=== PATIENT | male | born 1985 | race Caucasian/White ===

== ENCOUNTER 2019-10-04 16:19 | Inpatient (IN) | payer OTHER ==
[~2019-10-04] VITALS: Ht 185.4 cm; Wt 112.3 kg
[2019-10-04] MEDS ORDERED: EPINEPHRINE 5 MG in SODIUM CHLORIDE 0.9% 245 ML IV PRN (16:54)
[2019-10-04] MEDS ORDERED: PROPOFOL 100 ML IV PRN ×2 (16:54→18:31)
[2019-10-04] MEDS ORDERED: NALOXONE 4 MG in SODIUM CHLORIDE 0.9% 246 ML IV PRN (17:00)
[2019-10-04] MEDS ORDERED: NALOXONE 8 MG in SODIUM CHLORIDE 0.9% 242 ML IV PRN (17:00)
[2019-10-04] MEDS ORDERED: VECURONIUM 10 MG IVPush PRN (17:00)
--- NOTE | 2019-10-04 17:10 | NUR ---
THROUGHTPUT RN: CRITICAL LABS RECEIVED FROM LAB. EDMD AND PRIMARY RN AWARE.
--- NOTE | 2019-10-04 17:12 | NUR ---
vent setting rate 26 500 tv 100 % peep 12
[2019-10-04 17:16] LABS: ALBUMIN 2.8 g/dL (3.4-5.0); ANION GAP 23 mmol/L (5-15); CALCIUM 10.2 mg/dL (8.5-10.1); CHLORIDE 104 mmol/L (98-107); CREATININE 2.56 mg/dL (0.7-1.3)
[2019-10-04 17:24] LABS: ALANINE AMINOTRANSFERASE 1053 U/L (12-78); ALKALINE PHOSPHATASE 116 U/L (45-117); BILIRUBIN,TOTAL 0.4 mg/dL (0.2-1.0); TOTAL PROTEIN 5.6 g/dL (6.4-8.2)
[2019-10-04] MEDS ORDERED: SODIUM BICARBONATE 8.4% 150 MEQ in DEXTROSE 5% 1,000 ML IV SCH (17:30)
[2019-10-04] MEDS ORDERED: SODIUM BICARB 8.4%, 50ML SYRINGE IVPush ONE (17:30)
[2019-10-04] MEDS ORDERED: EPINEPHRINE SYRINGE 0.1 MG/ML, 10ML IVPush ONE (17:30)
[2019-10-04 17:37] LABS: SALICYLATE LEVEL 2.1 mg/dL (2.8-20.0)
[2019-10-04 17:38] LABS: TROPONIN I 0.139 ng/mL (0.000-0.045)
[2019-10-04] MEDS ORDERED: NALOXONE 1 MG/ML, 2ML ONE ×2 (17:38→17:41)
[2019-10-04] MEDS ORDERED: SODIUM BICARB 8.4%, 50ML SYRINGE ONE ×2 (17:38→17:41)
--- NOTE | 2019-10-04 17:38 | NUR ---
THROUGHPUT RN: RECEIVED CRITICAL TROP OF 0.139. DR. ROGERS AWARE.
[2019-10-04] MEDS ORDERED: CALCIUM CHLORIDE 13.6 MEQ/10 ML ONE (17:41)
[2019-10-04] MEDS ORDERED: EPINEPHRINE SYRINGE 0.1 MG/ML, 10ML ONE (17:41)
[2019-10-04 17:54] LABS: MEAN CORPUSCULAR HEMOGLOBIN 31.1 pg (27.5-34.5); MEAN CORPUSCULAR HGB CONC 31.2 g/dL (33.2-36.2); MEAN CORPUSCULAR VOLUME 99.4 fL (81-97); MEAN PLATELET VOLUME 6.8 fL (7.4-10.4); PLATELET COUNT 201 x10^3/uL (130-400); RED BLOOD COUNT 5.29 x10^6/uL (4.38-5.82); RED CELL DISTRIBUTION WIDTH 14.5 % (9.4-14.8)
[2019-10-04] MEDS ORDERED: EPINEPHRINE 10 MG in SODIUM CHLORIDE 0.9% 240 ML IV PRN (18:00)
[2019-10-04] MEDS ORDERED: PIPERACILLIN/TAZO/PMX 4.5GM 100 ML IV ONE (18:00)
[2019-10-04] MEDS ORDERED: NOREPINEPHRINE 8 MG in SODIUM CHLORIDE 0.9% 242 ML IV PRN (18:07)
[2019-10-04] MEDS ORDERED: PROPOFOL 100 ML IV ONE (18:14)
--- NOTE | 2019-10-04 18:25 | NUR ---
epi drip d/c per dr mathew. propofol initiated.
[2019-10-04 18:30] LABS: MD YES
[2019-10-04] MEDS ORDERED: PLEASE ENTER ALLERGIES MC SCH (18:30)
[2019-10-04 18:36] LABS: BAND#(MANUAL) 2.42 x10^3/uL; BANDS%(MANUAL) 10 % (0-7); LYMPH#(MANUAL) 10.16 x10^3/uL (1-3.4); LYMPHS% (MANUAL) 42 % (22-44); METAMYELOCYTES# (MANUAL) 0.24 x10^3/uL (0-0); METAMYELOCYTES% (MANUAL) 1 % (0-1); MONOS#(MANUAL) 0.97 x10^3/uL (0.3-2.7); MONOS% (MANUAL) 4 % (2-9); NRBC % (MANUAL) 1 % (0-1); SEG#(MANUAL) 10.41 x10^3/uL (1.8-6.8); SEGS% (MANUAL) 43 % (42-75)
[2019-10-04 18:37] LABS: HYPOCHROMIA 1+; POLYCHROMASIA 1+
[2019-10-04 18:39] LABS: <PLATELET ESTIMATE> ADEQUATE; <PLT MORPHOLOGY> NORMAL PLT MORPH
--- NOTE | 2019-10-04 18:43 | NUR ---
SUMMARY OF EVENTS: 1544- PT IN ROOM, CPR CONTINUED, EPI 1MG PUSH IV, 1548- 2MG NARCAN GIVEN IV, CPR CONTINUED 1615- PT INTUBATED @24CM AT THE LIP WITH A 8.0 TUBE. 1621- BICARB, CACL, EPI 1MG GIVEN, PULSE CHECK PT REMAINS IN ASYSTOLE 1624- EPI 1 MG IV, CONTINUED CPR 1626- NO PULSE ON PULSE CHECK, CONTINUED CPR 1630- CARDIAC US AT BEDSIDE SHOWS CARDIAC ACTIVITY. PT IN SINUS TACH NOW 1640- CENTRAL LINE PLACED, LABS COLLLECTED AND ABG SENT 1656-OG TUB PLACED 1658-EPI DRIP STARTED 1700- EKG COMPLETED (SINUS TACH) 1713-COOLING PADS APPLIED 1715-REYNAGA IN PLACE AND RECTAL TEMP, PRPOBE.
--- NOTE | 2019-10-04 18:57 | NUR ---
JESUS GUTIÉRREZ STARR AND CELLPHONE GIVEN TO FAMILY MEMEBER MOTHER BY Nuvia JIMENEZ.
[2019-10-04] MEDS ORDERED: CALCIUM CHLORIDE 13.6 MEQ in SODIUM CHLORIDE 0.9% 100 ML IVPB PRN (19:00)
[2019-10-04] MEDS: KSCALE TO 4.0 IV SCH ×2 (19:00→23:00)
--- NOTE | 2019-10-04 19:11 | NUR ---
PT REPORT BACK TO MARÍA.
[2019-10-04] MEDS ORDERED: FENTANYL PF 1,000 MCG in SODIUM CHLORIDE 0.9% 80 ML IV PRN (20:00)
[2019-10-04] MEDS ORDERED: SODIUM PHOSPHATE 20 MMOL in SODIUM CHLORIDE 0.9% 250 ML IVPB PRN (20:00)
--- NOTE | 2019-10-04 20:09 | NUR ---
VITAL SIGNS PRINTED AND GIVEN TO ICU. ICU NURSE NOTIFIED THAT [employer] HAS NOT BEEN CONTACTED.
[2019-10-04 20:26] LABS: AMPHETAMINE SCREEN, URINE Negative (Negative); BARBITURATE SCREEN, URINE Negative (Negative); BENZODIAZEPINE SCREEN, URINE Negative (Negative); CANNABINOID SCREEN, URINE Negative (Negative); COCAINE SCREEN, URINE Negative (Negative); METHADONE SCREEN, URINE Positive (Negative); OPIATE SCREEN, URINE Negative (Negative)
[2019-10-04] MEDS ORDERED: POTASSIUM CHLORIDE PMX 100 ML IV ONE ×2 (20:30→23:45)
[2019-10-04] MEDS: AMPICILLIN/SULBACTAM 3 GM in SODIUM CHLORIDE 0.9% 100 ML IV SCH (20:34)
[2019-10-04] MEDS: BUSPIRONE 10 MG TABLET NG SCH (20:35)
[2019-10-04] MEDS: HEPARIN 5,000 UNITS/ML, 1ML SQ SCH (20:35)
[2019-10-04] MEDS ORDERED: ONDANSETRON 2MG/ML, 2ML IVPush PRN (21:00)
[2019-10-04] MEDS: ARTIFICIAL TEARS OINT 3.5 GM EACHEYE SCH (21:12)
[2019-10-04 21:47] VITALS: BP 105/75
[2019-10-04] MEDS ORDERED: REGULAR INSULIN 100 UNITS in SODIUM CHLORIDE 0.9% 99 ML IV PRN (23:30)
[2019-10-04] MEDS: SODIUM BICARBONATE 8.4% 150 MEQ in DEXTROSE 5% 1,000 ML IV SCH (23:32)
[2019-10-04] MEDS: MAGNESIUM SULFATE 1 GM in DEXTROSE 5% 100 ML IVPB PRN (23:57)
[2019-10-05] MEDS: KSCALE TO 4.0 IV SCH ×3 (03:00→11:00)
[2019-10-05] MEDS: AMPICILLIN/SULBACTAM 3 GM in SODIUM CHLORIDE 0.9% 100 ML IV SCH ×4 (03:12→21:15)
[2019-10-05 03:47] LABS: ALBUMIN 3.2 g/dL (3.4-5.0); ANION GAP 9 mmol/L (5-15); CALCIUM 8.6 mg/dL (8.5-10.1); CHLORIDE 108 mmol/L (98-107); CREATININE 2.22 mg/dL (0.7-1.3)
[2019-10-05 03:58] LABS: ALANINE AMINOTRANSFERASE 2416 U/L (12-78); ALKALINE PHOSPHATASE 90 U/L (45-117); BILIRUBIN,TOTAL 0.6 mg/dL (0.2-1.0); TOTAL PROTEIN 6.2 g/dL (6.4-8.2)
[2019-10-05 04:00] VITALS: BP 111/79
[2019-10-05 04:02] LABS: MEAN CORPUSCULAR HGB CONC 32.4 g/dL (33.2-36.2); MEAN CORPUSCULAR VOLUME 95.6 fL (81-97); MEAN PLATELET VOLUME 6.8 fL (7.4-10.4); PLATELET COUNT 196 x10^3/uL (130-400); RED BLOOD COUNT 6.08 x10^6/uL (4.38-5.82); RED CELL DISTRIBUTION WIDTH 14.1 % (9.4-14.8)
[2019-10-05] MEDS: BUSPIRONE 10 MG TABLET NG SCH ×3 (04:28→21:15)
[2019-10-05] MEDS: ARTIFICIAL TEARS OINT 3.5 GM EACHEYE SCH ×3 (04:28→21:55)
[2019-10-05] MEDS: HEPARIN 5,000 UNITS/ML, 1ML SQ SCH ×3 (04:28→21:16)
[2019-10-05] MEDS ORDERED: POTASSIUM CHLORIDE PMX 100 ML IV ONE (04:30)
[2019-10-05 04:55] LABS: BASOPHILS % (AUTO) 0 % (0-1); EOSINOPHILS # (AUTO) 0.01 x10^3/uL (0-0.4); EOSINOPHILS % (AUTO) 0 % (1-7); LYMPHOCYTES # (AUTO) 0.56 x10^3/uL (1-3.4); LYMPHOCYTES % (AUTO) 7 % (22-44); MD SCAN; MONOCYTES # (AUTO) 0.06 x10^3/uL (0.2-0.8); MONOCYTES % (AUTO) 1 % (2-9); NEUTROPHILS # (AUTO) 7.31 x10^3/uL (1.8-6.8); NEUTROPHILS % (AUTO) 92 % (42-75)
[2019-10-05] MEDS: SODIUM BICARBONATE 8.4% 150 MEQ in DEXTROSE 5% 1,000 ML IV SCH ×2 (07:04→21:15)
[2019-10-05] MEDS: PANTOPRAZOLE 40 MG IV IVPush SCH (07:30)
[2019-10-05] MEDS ORDERED: POTASSIUM CHLORIDE 30 MEQ in SODIUM CHLORIDE 0.9% 100 ML IV ONE ×3 (08:00→17:30)
[2019-10-05] MEDS: FAMOTIDINE 20 MG/2 ML IVPush SCH (08:23)
[2019-10-05] MEDS: MAGNESIUM SULFATE 1 GM in DEXTROSE 5% 100 ML IVPB PRN (11:26)
[2019-10-05] MEDS: PHENYLEPHRINE 50 MG in SODIUM CHLORIDE 0.9% 245 ML IV PRN ×2 (12:36→18:16)
[2019-10-05] MEDS: NOREPINEPHRINE 32 MG in SODIUM CHLORIDE 0.9% 218 ML IV PRN ×2 (13:08→18:16)
[2019-10-05] MEDS ORDERED: MAGNESIUM SULFATE PMX 4GM/100M 100 ML IV ONE (13:30)
[2019-10-05] MEDS ORDERED: SODIUM CHLORIDE 0.9% 1,000 ML IV SCH (13:30)
[2019-10-05] MEDS ORDERED: POTASSIUM CHLORIDE 10% 40 MEQ/30 ML UDC ONE (13:32)
[2019-10-05] MEDS: POTASSIUM CHLORIDE 20 MEQ PACKET PO SCH ×2 (16:35→21:16)
[2019-10-05 16:49] LABS: MEAN CORPUSCULAR HEMOGLOBIN 30.9 pg (27.5-34.5); MEAN CORPUSCULAR HGB CONC 32.7 g/dL (33.2-36.2); MEAN CORPUSCULAR VOLUME 94.3 fL (81-97); MEAN PLATELET VOLUME 6.9 fL (7.4-10.4); PLATELET COUNT 148 x10^3/uL (130-400); RED BLOOD COUNT 6.89 x10^6/uL (4.38-5.82); RED CELL DISTRIBUTION WIDTH 13.8 % (9.4-14.8)
[2019-10-05 16:50] LABS: ALBUMIN 2.7 g/dL (3.4-5.0); ANION GAP 14 mmol/L (5-15); BILIRUBIN, DIRECT 0.8 mg/dL (0.1-0.2); CALCIUM 8.3 mg/dL (8.5-10.1); CHLORIDE 107 mmol/L (98-107); CREATININE 2.54 mg/dL (0.7-1.3)
[2019-10-05 17:05] LABS: ALANINE AMINOTRANSFERASE 1928 U/L (12-78); ALKALINE PHOSPHATASE 88 U/L (45-117); BILIRUBIN,INDIRECT 0.7 mg/dL (0.0-2.0); BILIRUBIN,TOTAL 1.5 mg/dL (0.2-1.0); TOTAL PROTEIN 5.6 g/dL (6.4-8.2)
[2019-10-05 17:10] LABS: MICROSCOPIC INDICATED
[2019-10-05 17:32] LABS: BASOPHILS # (AUTO) 0.02 x10^3/uL (0-0.1); BASOPHILS % (AUTO) 0 % (0-1); EOSINOPHILS # (AUTO) 0.08 x10^3/uL (0-0.4); EOSINOPHILS % (AUTO) 2 % (1-7); LYMPHOCYTES # (AUTO) 1.02 x10^3/uL (1-3.4); LYMPHOCYTES % (AUTO) 19 % (22-44); MONOCYTES # (AUTO) 0.04 x10^3/uL (0.2-0.8); MONOCYTES % (AUTO) 1 % (2-9); NEUTROPHILS # (AUTO) 4.33 x10^3/uL (1.8-6.8); NEUTROPHILS % (AUTO) 79 % (42-75)
[2019-10-05 17:38] LABS: MD NO
[2019-10-05 17:39] LABS: INTERNATIONAL NORMALIZED RATIO 1.13 (0.93-1.1)
[2019-10-05] MEDS ORDERED: SODIUM CHLORIDE 0.9% 1,000ML IVBOLUS ONE (18:30)
[2019-10-05] MEDS ORDERED: POTASSIUM PHOSPHATE 44 MEQ in SODIUM CHLORIDE 0.9% 500 ML IV ONE (20:00)
[2019-10-05] MEDS: KSCALE TO 4.5 IV SCH (20:00)
[2019-10-05] MEDS ORDERED: SODIUM BICARB 8.4%, 50ML SYRINGE ONE (20:37)
[2019-10-05] MEDS ORDERED: LACTATED RINGERS 500 ML IVBOLUS ONE (21:00)
[2019-10-05] MEDS ORDERED: SODIUM BICARB 8.4%, 50ML SYRINGE IVPush ONE (21:00)
[2019-10-05] MEDS: VASOPRESSIN 20 UNIT in SODIUM CHLORIDE 0.9% 99 ML IV PRN (23:41)
[2019-10-06] MEDS ORDERED: POTASSIUM CHLORIDE 40 MEQ in SODIUM CHLORIDE 0.9% 100 ML IV ONE ×4 (01:00→14:30)
[2019-10-06] MEDS: AMPICILLIN/SULBACTAM 3 GM in SODIUM CHLORIDE 0.9% 100 ML IV SCH ×3 (03:29→13:38)
[2019-10-06 04:00] VITALS: BP 119/63
[2019-10-06] MEDS: KSCALE TO 4.5 IV SCH ×5 (04:00→14:49)
[2019-10-06 04:46] LABS: INTERNATIONAL NORMALIZED RATIO 1.44 (0.93-1.1); PROTHROMBIN TIME 15.3 Seconds (9.6-11.5)
[2019-10-06 04:49] LABS: BASOPHILS # (AUTO) 0.01 x10^3/uL (0-0.1); BASOPHILS % (AUTO) 0 % (0-1); EOSINOPHILS # (AUTO) 0.19 x10^3/uL (0-0.4); EOSINOPHILS % (AUTO) 2 % (1-7); LYMPHOCYTES # (AUTO) 1.05 x10^3/uL (1-3.4); LYMPHOCYTES % (AUTO) 11 % (22-44); MD NO; MEAN CORPUSCULAR HGB CONC 32.9 g/dL (33.2-36.2); MEAN CORPUSCULAR VOLUME 94.1 fL (81-97); MONOCYTES # (AUTO) 0.13 x10^3/uL (0.2-0.8); MONOCYTES % (AUTO) 1 % (2-9); NEUTROPHILS # (AUTO) 7.94 x10^3/uL (1.8-6.8); NEUTROPHILS % (AUTO) 85 % (42-75); PLATELET COUNT 139 x10^3/uL (130-400); RED CELL DISTRIBUTION WIDTH 14.3 % (9.4-14.8)
[2019-10-06 04:52] LABS: ALBUMIN 1.8 g/dL (3.4-5.0); ANION GAP 14 mmol/L (5-15); BILIRUBIN, DIRECT 0.7 mg/dL (0.1-0.2); CALCIUM 7.3 mg/dL (8.5-10.1); CHLORIDE 113 mmol/L (98-107)
[2019-10-06] MEDS: ARTIFICIAL TEARS OINT 3.5 GM EACHEYE SCH ×2 (04:52→08:52)
[2019-10-06] MEDS: SODIUM BICARBONATE 8.4% 150 MEQ in DEXTROSE 5% 1,000 ML IV SCH ×2 (04:52→11:40)
[2019-10-06] MEDS: PHENYLEPHRINE 50 MG in SODIUM CHLORIDE 0.9% 245 ML IV PRN (04:53)
[2019-10-06] MEDS: NOREPINEPHRINE 32 MG in SODIUM CHLORIDE 0.9% 218 ML IV PRN ×2 (04:53→13:38)
[2019-10-06 04:56] LABS: MICROSCOPIC INDICATED
[2019-10-06] MEDS: HEPARIN 5,000 UNITS/ML, 1ML SQ SCH ×2 (05:00→10:50)
[2019-10-06 05:02] LABS: ALANINE AMINOTRANSFERASE 1223 U/L (12-78); ALKALINE PHOSPHATASE 59 U/L (45-117); BILIRUBIN,INDIRECT 0.5 mg/dL (0.0-2.0); BILIRUBIN,TOTAL 1.2 mg/dL (0.2-1.0); CREATININE 3.09 mg/dL (0.7-1.3); TOTAL PROTEIN 4.2 g/dL (6.4-8.2)
[2019-10-06] MEDS ORDERED: SODIUM PHOSPHATE 20 MMOL in SODIUM CHLORIDE 0.9% 500 ML IV ONE (07:00)
[2019-10-06] MEDS: PANTOPRAZOLE 40 MG IV IVPush SCH (07:30)
[2019-10-06] MEDS ORDERED: INSULIN LISPRO 100 UNITS/ML, PEN ONE (07:49)
[2019-10-06] MEDS ORDERED: INSULIN GLARGINE 100 UNITS/ML, PEN ONE (07:49)
[2019-10-06] MEDS: FAMOTIDINE 20 MG/2 ML IVPush SCH (07:52)
[2019-10-06] MEDS: VASOPRESSIN 20 UNIT in SODIUM CHLORIDE 0.9% 99 ML IV PRN (07:52)
[2019-10-06] MEDS: POTASSIUM CHLORIDE 20 MEQ PACKET PO SCH ×3 (07:52→16:00)
[2019-10-06] MEDS ORDERED: INSULIN GLARGINE 100 UNITS/ML, PEN SQ-INSULIN SCH (09:00)
[2019-10-06] MEDS ORDERED: PHENYLEPHRINE 100 MG in SODIUM CHLORIDE 0.9% 240 ML IV PRN (10:30)
[2019-10-06] MEDS ORDERED: INSULIN LISPRO 100 UNITS/ML, PEN SQ-INSULIN SCH ×2 (11:00→15:00)
[2019-10-06] MEDS ORDERED: ROCURONIUM 10MG/ML,5ML ONE (17:14)
== END 2019-10-07 03:47 | disposition expired | DRG 917 ==
LOC: ED 18:25 → EDIP 18:31 → ED 18:42 → CCU 19:58
PROVIDERS: ADMIT Internal Medicine; ATTEND Internal Medicine
PROC: 5A12012 Performance of Cardiac Output, Single, Manual (ICD-10-PCS; principal; 2019-10-04)
PROC: 02HV33Z Insertion of Infusion Device into Superior Vena Cava, Percutaneous Approach (ICD-10-PCS; 2019-10-04)
PROC: 06H033Z Insertion of Infusion Device into Inferior Vena Cava, Percutaneous Approach (ICD-10-PCS; 2019-10-04)
PROC: 5A1945Z Respiratory Ventilation, 24-96 Consecutive Hours (ICD-10-PCS; 2019-10-04)
PROC: 0BH17EZ Insertion of Endotracheal Airway into Trachea, Via Natural or Artificial Opening (ICD-10-PCS; 2019-10-04)
DX: T40.601A Poisoning by unspecified narcotics, accidental (unintentional), initial encounter (principal); J69.0 Pneumonitis due to inhalation of food and vomit; J96.01 Acute respiratory failure with hypoxia; N17.0 Acute kidney failure with tubular necrosis; G93.41 Metabolic encephalopathy; I21.4 Non-ST elevation (NSTEMI) myocardial infarction; E87.2 Acidosis; E87.4 Mixed disorder of acid-base balance; G93.1 Anoxic brain damage, not elsewhere classified; I10 Essential (primary) hypertension; I95.89 Other hypotension; R57.0 Cardiogenic shock; G89.4 Chronic pain syndrome; Z66 Do not resuscitate; E87.6 Hypokalemia; Z91.02 Food additives allergy status; Y92.89 Other specified places as the place of occurrence of the external cause
CPT/HCPCS: 31500; 36556; 36600; 96374; 99285; J3490; 70450; 71045; 76700; 80053; 80307; 81001; 82140; 82247; 82248; 82330; 82803; 82962; 83036; 83735; 83880; 84100; 84132; 84484; 85025; 85610; 85730; 86850; 86900; 87040; 87070; 87081; 87086; 87205; 92950; 93005; 94002; 94003; 95819; G0378; J0171; J0295; J1644; J1815; J2543; J3475; J3480; J7070; J7120; J2310; J2370; J7030; J7040; J7050

== ENCOUNTER 2019-10-05 13:00 | Inpatient (IN) | payer OTHER | END 2019-10-07 23:59 | disposition E | DRG 951 | LOC: 5SO 13:00 | PROVIDERS: ADMIT Internal Medicine; ATTEND Internal Medicine | DX: Z52.89 Donor of other specified organs or tissues (principal) | CPT/HCPCS: 36600; J3490; 71045; 76700; 80053; 81001; 82247; 82248; 82330; 82803; 82962; 83735; 84100; 84132; 85025; 85610; 85730; 86850; 86900; 87040; 87070; 87086; 87205; 94003; 95819; G0378; J0295; J1644; J1815; J3480; J7070; J7120; J2370; J3475; J7030; J7040; J7050 ==